=== PATIENT | female | born 1985 ===

== ENCOUNTER 2017-11-05 22:12 | Emergency (ER) | payer SELFPAY ==
[2017-11-05 22:20] VITALS: RESP 20
[2017-11-06 03:19] VITALS: BP 97/71; PULSE 90; TEMP 97.8; O2SAT 98
== END 2017-11-05 22:55 | disposition home or self-care (01) | DRG 156 ==
LOC: ED 22:12
DX: H60.92 Unspecified otitis externa, left ear (principal)
CPT/HCPCS: 99282

== ENCOUNTER 2017-11-10 17:18 | Emergency (ER) | payer SELFPAY ==
[2017-11-10] MEDS ORDERED: CEFTRIAXONE 1 GM PDS IM ONE (18:36)
[2017-11-10] MEDS ORDERED: CEFTRIAXONE 1 GM PDS ONE (19:08)
[2017-11-10] MEDS ORDERED: LIDOCAINE HCL 1% MPF SOL ONE (19:09)
[2017-11-10 19:33] VITALS: BP 105/69; PULSE 75; RESP 18; O2SAT 100
== END 2017-11-10 19:54 | disposition home or self-care (01) | DRG 153 ==
LOC: ED 17:18
DX: H65.92 Unspecified nonsuppurative otitis media, left ear (principal); H91.8X2 Other specified hearing loss, left ear; R05 Cough
CPT/HCPCS: 87804; 99284; J0696; J2001

== ENCOUNTER 2017-11-13 18:08 | Emergency (ER) | payer SELFPAY ==
[2017-11-13 18:08] VITALS: O2SAT 100
[2017-11-13 19:20] LABS: BASOPHILS % (AUTO) 1 % (0-3); EOSINOPHILS % (AUTO) 3 % (0-9); HEMATOCRIT 35 % (35-47); MEAN CORPUSCULAR HGB CONC 33.8 gm/dl (32.0-36.0); MONOCYTES % (AUTO) 8.3 % (0-12); NEUTROPHILS % (AUTO) 60.5 % (37-80)
[2017-11-13 19:24] LABS: MEAN CORPUSCULAR VOLUME 78 fL (81-99)
[2017-11-13 19:26] LABS: APPEARANCE,URINE Clear; BILIRUBIN,URINE NEGATIVE (NEGATIVE); COLOR,URINE Yellow; GLUCOSE, URINE (UA) NEGATIVE (NEGATIVE); KETONES,URINE NEGATIVE (NEGATIVE); LEUKOCYTE ESTERASE ,URINE NEGATIVE (NEGATIVE); NITRATE,URINE NEGATIVE (NEGATIVE); OCCULT BLOOD,URINE NEGATIVE (NEG-TRACE); UROBILINOGEN,URINE 0.2 (0.2-1.0 EU)
[2017-11-13 19:32] LABS: RBC,URINE 0-2 (0-3AV/HPF); WBC,URINE 0-2 (0-5AV/HPF)
[2017-11-13 19:43] LABS: ALBUMIN 3.5 gm/dl (3.4-5.0); CALCIUM 8.3 mg/dl (8.5-10.1); POTASSIUM 3.9 mMol/L (3.5-5.1)
[2017-11-13] MEDS ORDERED: KETOROLAC TROMETHAMINE 30 MG/ML SOL IM ONE (19:46)
[2017-11-13] MEDS ORDERED: KETOROLAC TROMETHAMINE 30 MG/ML SOL ONE (19:48)
[2017-11-13 20:26] VITALS: PULSE 67; RESP 20; TEMP 98
[2017-11-13 20:27] VITALS: BP 104/70
== END 2017-11-13 21:45 | disposition home or self-care (01) | DRG 392 ==
LOC: ED 18:08
DX: R10.32 Left lower quadrant pain (principal); H65.93 Unspecified nonsuppurative otitis media, bilateral
CPT/HCPCS: 74176; 80053; 81001; 84703; 85025; 96372; 99283; 99284; J1885

== ENCOUNTER 2017-12-21 06:53 | Day surgery (SDC) | payer MEDICAID ==
[2017-12-21] MEDS ORDERED: ONDANSETRON HCL 4 MG/2 ML SOL ONE (07:19)
[2017-12-21] MEDS ORDERED: PROPOFOL 500 MG/50 ML EMU IV ONE (07:19)
[2017-12-21] MEDS ORDERED: MIDAZOLAM 2 MG/2 ML SOL ONE (07:20)
[2017-12-21] MEDS ORDERED: FENTANYL 100MCG/2ML SOL ONE (07:20)
[2017-12-21] MEDS ORDERED: LIDOCAINE HCL 1% MPF SOL ONE (07:20)
[2017-12-21] MEDS: BUPIVACAINE/EPI 0.5% 10 ML SOL INFIL ONE ×2 (08:22→08:32)
[2017-12-21] MEDS ORDERED: KETOROLAC TROMETHAMINE 30 MG/ML SOL ONE (09:09)
[2017-12-21 09:51] VITALS: RESP 20; TEMP 98
[2017-12-21 09:55] VITALS: BP 95/62; PULSE 93; O2SAT 100
== END 2017-12-21 10:10 | disposition home or self-care (01) | DRG 392 ==
LOC: SURG 06:53
PROVIDERS: ATTEND Surgery
DX: R19.04 Left lower quadrant abdominal swelling, mass and lump (principal); D26.1 Other benign neoplasm of corpus uteri
CPT/HCPCS: J1885; J2250; J2405; J3010; A6402; J2001; J2704

== ENCOUNTER 2018-04-24 01:11 | Emergency (ER) | payer MEDICAID, OTHER ==
[2018-04-24] MEDS ORDERED: SULFAMETHOXAZOLE/TRIMETHOPRI 800/160 MG ONE (01:35)
[2018-04-24 01:41] LABS: BASOPHILS % (AUTO) 1 % (0-3); EOSINOPHILS % (AUTO) 1 % (0-9); HEMATOCRIT 44 % (35-47); HEMOGLOBIN 14.3 gm/dl (12.0-15.5); LYMPHOCYTES % (AUTO) 23.4 % (10-50); MEAN CORPUSCULAR HEMOGLOBIN 25.8 pg (27.0-32.0); MEAN CORPUSCULAR HGB CONC 32.5 gm/dl (32.0-36.0); MONOCYTES % (AUTO) 6.9 % (0-12)
[2018-04-24 01:44] LABS: MEAN CORPUSCULAR VOLUME 79 fL (81-99)
[2018-04-24 01:47] LABS: APPEARANCE,URINE Clear; BILIRUBIN,URINE NEGATIVE (NEGATIVE); COLOR,URINE Light yellow; GLUCOSE, URINE (UA) NEGATIVE (NEGATIVE); KETONES,URINE NEGATIVE (NEGATIVE); LEUKOCYTE ESTERASE ,URINE NEGATIVE (NEGATIVE); NITRATE,URINE NEGATIVE (NEGATIVE); OCCULT BLOOD,URINE NEGATIVE (NEG-TRACE); PH,URINE 5.5; UROBILINOGEN,URINE 0.2 (0.2-1.0 EU)
[2018-04-24 01:52] LABS: BACTERIA 1+ (< 1+); BARBITUATES NEGATIVE (NEGATIVE); BENZODIAZEPINES NEGATIVE (NEGATIVE); CANNABINOL(THC) NEGATIVE (NEGATIVE); COCAINE(COC) NEGATIVE (NEGATIVE); CRYSTALS NEGATIVE (0-3 AVE/HPF); METHADONE NEGATIVE (NEGATIVE); METHAMPHETAMINES NEGATIVE (NEGATIVE); OPIATES(OP13) NEGATIVE (NEGATIVE); OXYCODONE(OXY) NEGATIVE (NEGATIVE); PROPOXYPHENE(PPX) NEGATIVE (NEGATIVE); RBC,URINE 0-2 (0-3AV/HPF); TRICYCLIC ANTIDEPRESSANTS NEGATIVE (NEGATIVE); WBC,URINE 0-2 (0-5AV/HPF)
[2018-04-24 01:53] LABS: AMPHETAMINES NEGATIVE (NEGATIVE)
[2018-04-24 02:01] LABS: ALBUMIN 3.8 gm/dl (3.4-5.0); BILIRUBIN,TOTAL 0.4 mg/dl (0.2-1.0); CALCIUM 8.6 mg/dl (8.5-10.1); CARBON DIOXIDE 24.1 mEq/L (21-32); CREATININE 0.59 mg/dl (0.60-1.00); POTASSIUM 3.4 mMol/L (3.5-5.1); THYROID STIMULATING HORMONE 0.953 uIU/ml (0.358-3.740); TOTAL PROTEIN 8.1 gm/dl (6.4-8.2)
[2018-04-24 02:02] LABS: ALCOHOL 0.127 gm/dl (0.000-0.08)
[2018-04-24 02:17] VITALS: RESP 16; TEMP 98.3
[2018-04-24 05:20] VITALS: BP 98/61; PULSE 94; O2SAT 98
== END 2018-04-24 02:50 | disposition left against medical advice (07) ==
LOC: ED 01:11
DX: F10.129 Alcohol abuse with intoxication, unspecified (principal)
CPT/HCPCS: 36415; 80053; 80305; 80307; 81001; 84443; 84703; 85025; 99282; 99283; A9270-GY